=== PATIENT | female | born 1950 | race Caucasian/White ===

== ENCOUNTER 2018-01-28 11:58 | Inpatient (IN) | payer OTHER ==
[2018-01-28 12:08] VITALS: BMI 36.6
--- NOTE | 2018-01-28 12:14 | PDOC ---
History of Present Illness - General Chief Complaint: Pain Stated Complaint: BACK PAIN Time Seen by Provider: 01/28/18 12:14 - History of Present Illness Initial Comments: 01/28/18 12:24 Ms. Portillo is a 67 yo female w/ pmh of HTN and HLD who presents for evaluation of 1 hour of sudden onset left lower back pain / CVA tenderness radiating down to her left lower abdomen. Patient endorses nausea with this. Has not urinated since pain started. Rates pain as 10/10 and says it has moved downward somewhat since it started. The patient denies chest pain, shortness of breath, headache and dizziness. Denies fever, chills, vomit, diarrhea and constipation. Denies dysuria, frequency, urgency and hematuria. Allergies: Amoxicillin Past History - Past Medical History Allergies/Adverse Reactions: Allergies Allergy/AdvReac Type Severity Reaction Status Date / Time amoxicillin [Amoxicillin] Allergy Mild Itching Verified 01/28/18 12:08 Home Medications: Ambulatory Orders Amlodipine Besylate [Norvasc] 10 mg PO DAILY 07/17/11 Metoprolol Tartrate [Lopressor -] 100 mg PO DAILY 11/28/11 Aspirin 81 mg PO DAILY 10/01/12 Simvastatin [Zocor -] 10 mg PO HS 10/01/12 Ibuprofen [Motrin -] 400 mg PO QID PRN #20 tablet 04/13/15 Labetalol HCl 100 mg PO DAILY PRN 04/13/15 COPD: No HTN: Yes Hypercholesterolemia: Yes Thyroid Disease: Yes - Surgical History Appendectomy: Yes - Suicide/Smoking/Psychosocial Hx Smoking Status: No Smoking History: Never smoked Have you smoked in the past 12 months: No Number of Cigarettes Smoked Daily: 0 Hx Alcohol Use: No Drug/Substance Use Hx: No Substance Use Type: None Review of Systems - Review of Systems Comments:: 01/28/18 12:26 GENERAL/CONSTITUTIONAL: No fever or chills. No weakness. HEAD, EYES, EARS, NOSE AND THROAT: No change in vision. No ear pain or discharge. No sore throat. CARDIOVASCULAR: No chest pain or shortness of breath RESPIRATORY: No cough, wheezing, or hemoptysis. GASTROINTESTINAL:+Nausea w/ abdominal/back pain as described. No vomiting, diarrhea or constipation. GENITOURINARY: No dysuria, frequency, or change in urination. MUSCULOSKELETAL: No joint or muscle swelling or pain. No neck or back pain. SKIN: No rash NEUROLOGIC: No headache, vertigo, loss of consciousness, or change in strength/ sensation. ENDOCRINE: No increased thirst. No abnormal weight change HEMATOLOGIC/LYMPHATIC: No anemia, easy bleeding, or history of blood clots. ALLERGIC/IMMUNOLOGIC: No hives or skin allergy. *Physical Exam - Vital Signs Last Vital Signs Temp Pulse Resp BP Pulse Ox 98.1 F 85 18 172/84 97 01/28/18 12:05 01/28/18 12:05 01/28/18 12:05 01/28/18 12:05 01/28/18 12:05 - Physical Exam Comments: 01/28/18 12:27 GENERAL: Awake, alert, and fully oriented, in no acute distress HEAD: No signs of trauma, normocephalic, atraumatic EYES: PERRLA, EOMI, sclera anicteric, conjunctiva clear ENT: Auricles normal inspection, hearing grossly normal, nares patent, oropharynx clear without exudates. Moist mucosa NECK: Normal ROM, supple, no lymphadenopathy, JVD, or masses LUNGS: No distress, speaks full sentences, clear to auscultation bilaterally HEART: Regular rate and rhythm, normal S1 and S2, no murmurs, rubs or gallops, peripheral pulses normal and equal bilaterally. ABDOMEN: +Left CVA tenderness w/ LLQ abdominal pain. Soft, normoactive bowel sounds. No guarding, no rebound. No masses EXTREMITIES: Normal inspection, Normal range of motion, no edema. No clubbing or cyanosis. NEUROLOGICAL: Cranial nerves II through XII grossly intact. Normal speech, normal gait, no focal sensorimotor deficits SKIN: Warm, Dry, normal turgor, no rashes or lesions noted. ED Treatment Course - LABORATORY CBC & Chemistry Diagram: 01/28/18 12:40 01/28/18 12:40 Medical Decision Making - Medical Decision Making 01/28/18 13:41 Ms. Portillo is a 67 yo female w/ pmh as described who presents for evaluation of symptoms c/w nephrolithiasis. CT significant for 6mm proximal left ureteral calculus w/ mild hydro; also UTI as below. Urology paged for consult and inpatient team paged for admission. 01/28/18 13:48 Discussed patient w/ urologist who recommended 1gm rocephin and will stent patient tomorrow. Laboratory Results - last 24 hr 01/28/18 01/28/18 01/28/18 12:40 12:40 12:40 WBC 5.9 RBC 4.63 Hgb 13.2 Hct 38.9 D MCV 83.9 MCH 28.4 MCHC 33.8 RDW 15.1 Plt Count 277 MPV 7.7 Absolute Neuts (auto) 3.2 Neutrophils % 53.9 Lymphocytes % 34.7 Monocytes % 8.3 Eosinophils % 2.4 Basophils % 0.7 Nucleated RBC % 0 Sodium 142 Potassium 3.9 Chloride 106 Carbon Dioxide 26 Anion Gap 10 BUN 14 Creatinine 0.6 Creat Clearance w eGFR > 60 Random Glucose 137 H Calcium 9.4 Total Bilirubin 0.4 AST 14 L ALT 27 Alkaline Phosphatase 100 Total Protein 7.9 Albumin 4.2 Urine Color Ltyellow Urine Appearance Slcloudy Urine pH 6.0 Ur Specific [place] 1.015 Urine Protein Negative Urine Glucose (UA) Negative Urine Ketones Negative Urine Blood 3+ H Urine Nitrite Negative Urine Bilirubin Negative Urine Urobilinogen Negative Ur Leukocyte Esterase 2+ H Urine WBC (Auto) 22 Urine RBC (Auto) 610 Ur Epithelial Cells Rare Urine Mucus Rare *DC/Admit/Observation/Transfer Diagnosis at time of Disposition: Nephrolithiasis - Discharge Dispostion Decision to Admit order: Yes - Referrals Referrals: Constance Chapman [Primary Care Provider] - - Patient Instructions - Post Discharge Activity
[2018-01-28] MEDS ORDERED: SODIUM CHLORIDE 1,000 ML IV STA (12:20)
[2018-01-28] MEDS ORDERED: ONDANSETRON 4 MG/2 ML VIAL IVPUSH ONE (12:20)
[2018-01-28] MEDS ORDERED: morphine CARPU-JECT 4 MG/1 ML DISP.SYRIN IVPUSH ONE (12:21)
--- NOTE | 2018-01-28 12:27 | PDOC ---
Attending Attestation - Resident Resident Name: MichaelnicolekiranZachary - ED Attending Attestation I have performed the following: I have examined & evaluated the patient, The case was reviewed & discussed with the resident, I agree w/resident's findings & plan, Exceptions are as noted - HPI HPI: 01/28/18 12:25 67-year-old female with past medical history of hypertension, hyperlipidemia presents with sudden onset of left lower quadrant and left CVA tenderness pain starting approximately one hour ago. Denies any fevers or chills. Denies nausea or vomiting. Denies dysuria. First time episode and came to the ER for further evaluation. - Physicial Exam PE: 01/28/18 12:27 GENERAL: Awake, alert, and fully oriented, in no acute distress HEAD: No signs of trauma EYES: EOMI, sclera anicteric, conjunctiva clear ENT: Auricles normal inspection, hearing grossly normal, nares patent, Moist mucosa NECK: Normal ROM, supple ABDOMEN: Soft, nontender abdomen. + left sided CVA tenderness. No guarding, no rebound. No masses EXTREMITIES: Normal range of motion, no edema. No clubbing or cyanosis. No cords, erythema, or tenderness NEUROLOGICAL: Cranial nerves II through XII grossly intact. Normal speech, normal gait SKIN: Warm, Dry, normal turgor, no rashes or lesions noted. - Medical Decision Making 01/28/18 12:31 Vital Signs Temp Pulse Resp BP Pulse Ox 98.1 F 85 18 172/84 97 01/28/18 12:05 01/28/18 12:05 01/28/18 12:05 01/28/18 12:05 01/28/18 12:05 Differential includes cystitis, diverticulitis, colitis, renal colic, musculoskeletal. Labs including UA/UC, CT spiral abdomen and pelvis and reassess. 01/28/18 13:39 CBC, BMP 01/28/18 12:40 01/28/18 12:40 CMP Sodium 142 mmol/L (136-145) 01/28/18 12:40 Potassium 3.9 mmol/L (3.5-5.1) 01/28/18 12:40 Chloride 106 mmol/L (98-107) 01/28/18 12:40 Carbon Dioxide 26 mmol/L (21-32) 01/28/18 12:40 Anion Gap 10 MMOL/L (8-16) 01/28/18 12:40 BUN 14 mg/dL (7-18) 01/28/18 12:40 Creatinine 0.6 mg/dL (0.55-1.3) 01/28/18 12:40 Creat Clearance w eGFR > 60 (>60) 01/28/18 12:40 Random Glucose 137 mg/dL (74-106) H 01/28/18 12:40 Calcium 9.4 mg/dL (8.5-10.1) 01/28/18 12:40 Total Bilirubin 0.4 mg/dL (0.2-1.0) 01/28/18 12:40 AST 14 U/L (15-37) L 01/28/18 12:40 ALT 27 U/L (13-61) 01/28/18 12:40 Alkaline Phosphatase 100 U/L (45-117) 01/28/18 12:40 Total Protein 7.9 g/dl (6.4-8.2) 01/28/18 12:40 Albumin 4.2 g/dl (3.4-5.0) 01/28/18 12:40 Urine Test Results Urine Color Ltyellow 01/28/18 12:40 Urine Appearance Slcloudy 01/28/18 12:40 Urine pH 6.0 (5.0-8.0) 01/28/18 12:40 Ur Specific [place] 1.015 (1.001-1.035) 01/28/18 12:40 Urine Protein Negative (NEGATIVE) 01/28/18 12:40 Urine Glucose (UA) Negative (NEGATIVE) 01/28/18 12:40 Urine Ketones Negative (NEGATIVE) 01/28/18 12:40 Urine Blood 3+ (NEGATIVE) H 01/28/18 12:40 Urine Nitrite Negative (NEGATIVE) 01/28/18 12:40 Urine Bilirubin Negative (<2.0 mg/dL) 01/28/18 12:40 Ur Leukocyte Esterase 2+ (NEGATIVE) H 01/28/18 12:40 Ur Epithelial Cells Rare /HPF (FEW) 01/28/18 12:40 Urine Mucus Rare 01/28/18 12:40 CAT scan demonstrates cholelithiasis and kidney stone. Repeat to be some hydronephrosis and a 6 mm stone. Given that there is 2+ leukocyte esterase and 20-30 mL, we'll treat with IV antibiotic, ceftriaxone. Case is discussed with urologist Dr. Gilbert by Dr. Henry who will be personal consultant on case. Admit. Heart Score/ECG Review #1 ECG reviewed & interpreted by me at: 14:45 01/28/18 14:53 NSR 93, no std/st, normal axis, normal intervals, QTC 472 msec
[2018-01-28] MEDS ORDERED: morphine SULFATE 4 MG/ML VIAL ONE (12:30)
[2018-01-28] MEDS ORDERED: ONDANSETRON 4 MG/2 ML VIAL ONE (12:30)
[2018-01-28 12:49] LABS: BASO % 0.7 % (0-2.0); EOS % 2.4 % (0-4.5); HEMATOCRIT 38.9 % (32.4-45.2); HEMOGLOBIN 13.2 GM/dL (10.7-15.3); LYMPH % 34.7 % (8-40); MCH 28.4 pg (25.7-33.7); MCHC 33.8 g/dl (32.0-36.0); MEAN CELL VOLUME 83.9 fl (80-96); MEAN PLT VOLUME 7.7 fl (7.5-11.1); MONO % 8.3 % (3.8-10.2); NEUT % 53.9 % (42.8-82.8); PLATELET COUNT 277 K/MM3 (134-434); RBC 4.63 M/mm3 (3.60-5.2); RDW 15.1 % (11.6-15.6); WHITE BLOOD COUNT 5.9 K/mm3 (4.0-10.0)
[2018-01-28 12:51] LABS: URINE APPEARANCE SLCLOUDY; URINE BILIRUBIN NEGATIVE (<2.0 mg/dL); URINE COLOR LTYELLOW; URINE GLUCOSE (UA) NEGATIVE (NEGATIVE); URINE KETONE NEGATIVE (NEGATIVE); URINE NITRITE NEGATIVE (NEGATIVE); URINE PROTEIN NEGATIVE (NEGATIVE); URINE UROBILINOGEN NEGATIVE mg/dL (0.2-1.0)
[2018-01-28 12:56] LABS: URINE LEUK ESTERASE 2+ (NEGATIVE)
[2018-01-28 13:00] LABS: EPI CELLS RARE /HPF (FEW); URINE MUCUS RARE
[2018-01-28 13:17] LABS: ALBUMIN 4.2 g/dl (3.4-5.0); ANION GAP 10 MMOL/L (8-16); BILIRUBIN,TOTAL 0.4 mg/dL (0.2-1.0); BLOOD UREA NITROGEN 14 mg/dL (7-18); CALCIUM 9.4 mg/dL (8.5-10.1); CHLORIDE 106 mmol/L (98-107); CO2 26 mmol/L (21-32); CREATININE 0.6 mg/dL (0.55-1.3); GLUCOSE,RANDOM 137 mg/dL (74-106); POTASSIUM 3.9 mmol/L (3.5-5.1); SGOT/AST 14 U/L (15-37); SGPT/ALT 27 U/L (13-61); SODIUM 142 mmol/L (136-145); TOT PROT 7.9 g/dl (6.4-8.2)
[2018-01-28 13:18] LABS: ALK PHOS 100 U/L (45-117)
[2018-01-28] MEDS ORDERED: CEFTRIAXONE 1,000 MG in DEXTROSE 5%-WATER - 50 ML IVPB ONE (13:44)
[2018-01-28] MEDS ORDERED: CEFTRIAXONE 1 GM/50 ML BAG ONE (13:49)
--- NOTE | 2018-01-28 14:12 | PN ---
Teaching Attending Note Name of Resident: Justin Davenport ATTENDING PHYSICIAN STATEMENT I saw and evaluated the patient. I reviewed the resident's note and discussed the case with the resident. I agree with the resident's findings and plan as documented. SUBJECTIVE: Patient is a 67 y/o female with PMHx of HTN, HLD, hypothyroidism, presneted with sudden onset left back and flank plain radiating to LLQ since 11 am this mornig, 02/21 severity, no alleviating or exacerbating factors, denies having any fever or chills , Denies having any hematuria or hesistancy or urgency. Denies having any vomiting, diarrhea, or constipation. OBJECTIVE: Vital Signs Temperature 98.1 F 01/28/18 12:05 Pulse Rate 85 01/28/18 12:05 Respiratory Rate 18 01/28/18 12:05 Blood Pressure 172/84 01/28/18 12:05 O2 Sat by Pulse Oximetry (%) 97 01/28/18 12:05 CBCD WBC 5.9 K/mm3 (4.0-10.0) 01/28/18 12:40 RBC 4.63 M/mm3 (3.60-5.2) 01/28/18 12:40 Hgb 13.2 GM/dL (10.7-15.3) 01/28/18 12:40 Hct 38.9 % (32.4-45.2) D 01/28/18 12:40 MCV 83.9 fl (80-96) 01/28/18 12:40 MCHC 33.8 g/dl (32.0-36.0) 01/28/18 12:40 RDW 15.1 % (11.6-15.6) 01/28/18 12:40 Plt Count 277 K/MM3 (134-434) 01/28/18 12:40 MPV 7.7 fl (7.5-11.1) 01/28/18 12:40 CMP Sodium 142 mmol/L (136-145) 01/28/18 12:40 Potassium 3.9 mmol/L (3.5-5.1) 01/28/18 12:40 Chloride 106 mmol/L (98-107) 01/28/18 12:40 Carbon Dioxide 26 mmol/L (21-32) 01/28/18 12:40 Anion Gap 10 MMOL/L (8-16) 01/28/18 12:40 BUN 14 mg/dL (7-18) 01/28/18 12:40 Creatinine 0.6 mg/dL (0.55-1.3) 01/28/18 12:40 Creat Clearance w eGFR > 60 (>60) 01/28/18 12:40 Random Glucose 137 mg/dL (74-106) H 01/28/18 12:40 Calcium 9.4 mg/dL (8.5-10.1) 01/28/18 12:40 Total Bilirubin 0.4 mg/dL (0.2-1.0) 01/28/18 12:40 AST 14 U/L (15-37) L 01/28/18 12:40 ALT 27 U/L (13-61) 01/28/18 12:40 Alkaline Phosphatase 100 U/L (45-117) 01/28/18 12:40 Total Protein 7.9 g/dl (6.4-8.2) 01/28/18 12:40 Albumin 4.2 g/dl (3.4-5.0) 01/28/18 12:40 Current Medications Generic Name Dose Route Start Last Admin Trade Name Freq PRN Reason Stop Dose Admin Ceftriaxone Sodium 1,000 mg/ 50 mls @ 100 mls/hr 01/28/18 13:44 01/28/18 13: 58 Dextrose IVPB 01/28/18 14:13 100 mls/hr ONCE ONE Administration Home Medications Medication Instructions Recorded Amlodipine Besylate [Norvasc] 10 mg PO DAILY 07/17/11 Metoprolol Tartrate [Lopressor -] 100 mg PO DAILY 11/28/11 Aspirin 81 mg PO DAILY 10/01/12 Simvastatin [Zocor -] 10 mg PO HS 10/01/12 Ibuprofen [Motrin -] 400 mg PO QID PRN #20 tablet 04/13/15 Labetalol HCl 100 mg PO DAILY PRN 04/13/15 PE: generally with severe pain , unable to lie still positive for left CVA tenderness CT abdomen and pelvis: reported : obstruction L ureteral calculus and hydronephrosis. ASSESSMENT AND PLAN: Patient is a 67yo Female with PMHx HTN, HLD, hypothyroidism presented with left flank pain 02/21 and was found to have left partial obstruction ureteral calculus with hydronephrosis. # Left Ureteral stone with partial obstruction with hydronephrosis: On Iv Ceftriaxone, urology consulted (Dr. Gilbert), NS 75, morphine, IV tylenol prn for pain and Morphine 2mg iv q4 hr. #HTN: continue home meds; Toprol, Losartan, Norvasc. #HLD: continue home Zocor #hypothyroidism: continue home synthroid 100 po mcg #DVT PPx: SCDs
[2018-01-28] MEDS: SODIUM CHLORIDE 1,000 ML IV SCH (14:33)
[2018-01-28] MEDS ORDERED: amLODIPine BESYLATE 5 MG TABLET (FP) ONE (14:35)
[2018-01-28] MEDS: amLODIPine BESYLATE 5 MG TABLET (FP) PO SCH (14:39)
--- NOTE | 2018-01-28 14:40 | HP ---
CHIEF COMPLAINT: Back/flank pain PCP: HISTORY OF PRESENT ILLNESS: 67 y/o F w/ PMHx HTN, HLD, hypothyroidism, p/w sudden onset left back and flank plain radiating to LLQ since 11 am, 02/21 severity, no alleviating or exacerbating factors, a/w nausea no vomiting, diarrhea, constipation. Denied fever/chills on arrival in ED but in hospitalist encounter endorsed recent onset of fever, chills, and diaphoresis. Denies dysuria, hematuria, CP, SOB. Imaging demonstrates obstruction L ureteral calculus and hydronephrosis. ER course was notable for: (1) afebrile, no WBC elevation (2) CT a/p: L ureteral calculus w/ hydronephrosis, cholelithiasis, fibroid uterus (3) given saline bolus, morphine 4mg, ceftriaxone; UCx pending Recent Travel: PAST MEDICAL HISTORY: As per HPI PAST SURGICAL HISTORY: None Social History: Smoking: Alcohol: Drugs: Family History: Allergies amoxicillin [Amoxicillin] Allergy (Mild, Verified 01/28/18 12:08) Itching HOME MEDICATIONS: Home Medications Medication Instructions Recorded Amlodipine Besylate [Norvasc] 10 mg PO DAILY 07/17/11 Aspirin 81 mg PO DAILY 10/01/12 Simvastatin [Zocor -] 10 mg PO HS 10/01/12 Ergocalciferol (Vitamin D2) 50,000 unit PO 01/28/18 [Vitamin D2] Levothyroxine [Synthroid -] 100 mcg PO DAILY 01/28/18 Losartan Potassium 50 mg PO DAILY 01/28/18 Metoprolol Succinate [Toprol Xl] 100 mg PO DAILY 01/28/18 REVIEW OF SYSTEMS As per HPI PHYSICAL EXAMINATION Vital Signs - 24 hr 01/28/18 12:05 Temperature 98.1 F Pulse Rate 85 Respiratory 18 Rate Blood Pressure 172/84 O2 Sat by Pulse 97 Oximetry (%) GENERAL: A&O x 3, NAD HEAD: NC/AT EYES: PERRLA, EOMI EARS, NOSE, THROAT: Ears normal, nares patent, oropharynx clear without exudates. Moist mucous membranes. NECK: Normal range of motion, supple without lymphadenopathy, JVD, or masses. LUNGS: Breath sounds equal, clear to auscultation bilaterally. No wheezes, and no crackles. No accessory muscle use. HEART: Regular rate and rhythm, normal S1 and S2 without murmur, rub or gallop. ABDOMEN: Soft, nontender, not distended, normoactive bowel sounds, no guarding, no rebound, no masses. No hepatomegaly or splenomegaly. MUSCULOSKELETAL: Normal range of motion at all joints. +L CVA tenderness. UPPER EXTREMITIES: 2+ pulses, warm, well-perfused. No cyanosis. No clubbing. No peripheral edema. LOWER EXTREMITIES: 2+ pulses, warm, well-perfused. No calf tenderness. No peripheral edema. NEUROLOGICAL: Cranial nerves II-XII intact. Normal speech. Normal gait. PSYCHIATRIC: Cooperative. Good eye contact. Appropriate mood and affect. SKIN: Warm, dry, normal turgor, no rashes or lesions noted, normal capillary refill. Laboratory Results - last 24 hr 01/28/18 01/28/18 01/28/18 12:40 12:40 12:40 WBC 5.9 RBC 4.63 Hgb 13.2 Hct 38.9 D MCV 83.9 MCH 28.4 MCHC 33.8 RDW 15.1 Plt Count 277 MPV 7.7 Absolute Neuts (auto) 3.2 Neutrophils % 53.9 Lymphocytes % 34.7 Monocytes % 8.3 Eosinophils % 2.4 Basophils % 0.7 Nucleated RBC % 0 Sodium 142 Potassium 3.9 Chloride 106 Carbon Dioxide 26 Anion Gap 10 BUN 14 Creatinine 0.6 Creat Clearance w eGFR > 60 Random Glucose 137 H Calcium 9.4 Total Bilirubin 0.4 AST 14 L ALT 27 Alkaline Phosphatase 100 Total Protein 7.9 Albumin 4.2 Urine Color Ltyellow Urine Appearance Slcloudy Urine pH 6.0 Ur Specific [place] 1.015 Urine Protein Negative Urine Glucose (UA) Negative Urine Ketones Negative Urine Blood 3+ H Urine Nitrite Negative Urine Bilirubin Negative Urine Urobilinogen Negative Ur Leukocyte Esterase 2+ H Urine WBC (Auto) 22 Urine RBC (Auto) 610 Ur Epithelial Cells Rare Urine Mucus Rare ASSESSMENT/PLAN: 67 y/o F w/ PMHx HTN, HLD, hypothyroidism p/w 10/10 L flank pain, admitted for obstruction ureteral stone #ureteral stone -CT a/p L ureteral stone and hydronephrosis -afebrile, no leukocytosis -UA w/ blood and scant WBC, culture sent -on Ceftriaxone -urology consulted (Dr. Gilbert) -NPO -NS 75 -IV tylenol PRN for pain #HTN -home meds: Toprol, Losartan, Norvasc #HLD -home Zocor #hypothyroidism -home synthroid 100 mcg #FEN -NS 75 -monitor -NPO #DVT PPx -SCDs #dispo -med/surg Visit type - Emergency Visit Emergency Visit: Yes Care time: The patient presented to the Emergency Department on the above date and was hospitalized for further evaluation of their emergent condition. - New Patient This patient is new to me today: Yes Date on this admission: 01/28/18 - Critical Care Critical Care patient: No Hospitalist Screening - Colonoscopy Questionnaire Colonoscopy Questionnaire: Colonoscopy Questionnaire - Patient: 50 - 75 years old and never had a screening colonoscopy: Unknown History of colon or rectal polyps, or CA: Unknown History of IBD, Crohn's disease or UC: Unknown History of abdominal radiation therapy as a child: Unknown - Relative: 1 with colon or rectal CA, or polyps at age 60 or younger: Unknown Colon or rectal CA diagnosed at age 45 or younger: Unknown Multiple relatives with colon or rectal CA: Unknown - Outcome: Screening Result: Negative Screen
[2018-01-28] MEDS ORDERED: ACETAMINOPHEN INJECTION 100 ML IVPB ONE (14:41)
[2018-01-28] MEDS: ACETAMINOPHEN 1000 MG/100 ML VIAL (NON FORMULARY) IVPB PRN (14:43)
[2018-01-28 15:14] LABS: INR 0.96 (0.83-1.09); PROTHROMBIN TIME (PATIENT) 10.9 SEC (9.7-13.0)
[2018-01-28] MEDS ORDERED: MORPHINE SULFATE 2 MG/ML VIAL IVPUSH PRN (15:14)
[2018-01-28 15:16] LABS: ACTIVATED PTT 25.3 SECONDS (25.2-36.5)
[2018-01-28] MEDS: LOSARTAN POTASSIUM 50 MG TABLET (FP) PO SCH ×2 (15:27→15:30)
[2018-01-28] MEDS ORDERED: MORPHINE SULFATE 2 MG/ML VIAL IVPUSH ONE (18:00)
[2018-01-28] MEDS ORDERED: LOSARTAN POTASSIUM 50 MG TABLET (FP) PO ONE (21:00)
--- NOTE | 2018-01-28 21:07 | EKG ---
Test Reason : Blood Pressure : / mmHG Vent. Rate : 093 BPM Atrial Rate : 093 BPM P-R Int : 164 ms QRS Dur : 078 ms QT Int : 380 ms P-R-T Axes : 071 048 063 degrees QTc Int : 472 ms NORMAL SINUS RHYTHM NORMAL ECG WHEN COMPARED WITH ECG OF 13-APR-2015 13:13, NO SIGNIFICANT CHANGE WAS FOUND Confirmed by KRYSTYNA ALCARAZ MD ([id number]) on 01/28/2018 9:07:30 PM Referred By: Confirmed By:KRYSTYNA ALCARAZ MD
[2018-01-28] MEDS: ATORVASTATIN CA 10 MG TABLET (FP) PO SCH (21:47)
[2018-01-28] MEDS: MORPHINE SULFATE 2 MG/ML VIAL IVPUSH PRN (21:48)
[2018-01-29] MEDS: ACETAMINOPHEN 1000 MG/100 ML VIAL (NON FORMULARY) IVPB PRN (00:59)
[2018-01-29] MEDS: SODIUM CHLORIDE 1,000 ML IV SCH (01:00)
[2018-01-29] MEDS: MORPHINE SULFATE 2 MG/ML VIAL IVPUSH PRN ×2 (05:52→12:59)
[2018-01-29] MEDS ORDERED: PROMETHAZINE HCL 25 MG TABLET PO ONE (06:42)
[2018-01-29 07:36] LABS: BASO % 0.8 % (0-2.0); EOS % 0.1 % (0-4.5); HEMOGLOBIN 12.4 GM/dL (10.7-15.3); LYMPH % 8.3 % (8-40); MCHC 33.5 g/dl (32.0-36.0); MEAN CELL VOLUME 83.6 fl (80-96); MEAN PLT VOLUME 7.2 fl (7.5-11.1); MONO % 6.4 % (3.8-10.2); NEUT % 84.4 % (42.8-82.8); PLATELET COUNT 272 K/MM3 (134-434); RBC 4.42 M/mm3 (3.60-5.2); RDW 14.9 % (11.6-15.6); WHITE BLOOD COUNT 11.6 K/mm3 (4.0-10.0)
[2018-01-29 08:31] LABS: ANION GAP 11 MMOL/L (8-16); BLOOD UREA NITROGEN 11 mg/dL (7-18); CALCIUM 9.2 mg/dL (8.5-10.1); CHLORIDE 103 mmol/L (98-107); CO2 26 mmol/L (21-32); CREATININE 0.8 mg/dL (0.55-1.3); GLUCOSE,RANDOM 121 mg/dL (74-106); PHOSPHOROUS 3.7 mg/dL (2.5-4.9); POTASSIUM 4.2 mmol/L (3.5-5.1); SODIUM 140 mmol/L (136-145)
[2018-01-29] MEDS ORDERED: DEXTROSE 5%-WATER 100 ML IVPB ONE (09:36)
[2018-01-29] MEDS: LEVOTHYROXINE NA 100 MCG TABLET (FP) PO SCH (09:50)
[2018-01-29] MEDS: ASPIRIN 81 MG CHEWABLE TABLETS PO SCH ×2 (09:50→11:46)
[2018-01-29] MEDS: amLODIPine BESYLATE 5 MG TABLET (FP) PO SCH (09:50)
[2018-01-29] MEDS: CEFTRIAXONE 2 GM in DEXTROSE 5%-WATER 100 ML IVPB SCH (09:51)
[2018-01-29] MEDS: LOSARTAN POTASSIUM 50 MG TABLET (FP) PO SCH (09:51)
[2018-01-29] MEDS ORDERED: oxyCODONE HCL 5 MG TABLET PO PRN (11:59)
--- NOTE | 2018-01-29 13:04 | PN ---
Physical Exam: SUBJECTIVE: Patient seen and examined at bedside. Pain significantly improved with morphine vs. at admission. No complaints otherwise. OBJECTIVE: Vital Signs Period Temp Pulse Resp BP Sys/Antunez Pulse Ox Last 24 Hr 97.8 F-98.7 F 82-100 18-20 133-154/73-91 96-98 GENERAL: A&O x 3, NAD HEAD: NC/AT EYES: PERRLA, EOMI EARS, NOSE, THROAT: Ears normal, nares patent, oropharynx clear without exudates. Moist mucous membranes. NECK: Normal range of motion, supple without lymphadenopathy, JVD, or masses. LUNGS: Breath sounds equal, clear to auscultation bilaterally. No wheezes, and no crackles. No accessory muscle use. HEART: Regular rate and rhythm, normal S1 and S2 without murmur, rub or gallop. ABDOMEN: Soft, nontender, not distended, normoactive bowel sounds, no guarding, no rebound, no masses. No hepatomegaly or splenomegaly. MUSCULOSKELETAL: Normal range of motion at all joints. +L CVA tenderness. UPPER EXTREMITIES: 2+ pulses, warm, well-perfused. No cyanosis. No clubbing. No peripheral edema. LOWER EXTREMITIES: 2+ pulses, warm, well-perfused. No calf tenderness. No peripheral edema. NEUROLOGICAL: Cranial nerves II-XII intact. Normal speech. Normal gait. PSYCHIATRIC: Cooperative. Good eye contact. Appropriate mood and affect. SKIN: Warm, dry, normal turgor, no rashes or lesions noted, normal capillary refill. Laboratory Results - last 24 hr 01/28/18 01/28/18 01/28/18 12:40 14:41 14:41 WBC RBC Hgb Hct MCV MCH MCHC RDW Plt Count MPV Absolute Neuts (auto) Neutrophils % Lymphocytes % Monocytes % Eosinophils % Basophils % Nucleated RBC % PT with INR 10.90 INR 0.96 PTT (Actin FS) 25.3 Sodium 142 Potassium 3.9 Chloride 106 Carbon Dioxide 26 Anion Gap 10 BUN 14 Creatinine 0.6 Creat Clearance w eGFR > 60 Random Glucose 137 H Calcium 9.4 Phosphorus Magnesium Total Bilirubin 0.4 AST 14 L ALT 27 Alkaline Phosphatase 100 Total Protein 7.9 Albumin 4.2 Blood Type A POSITIVE Antibody Screen Negative 01/28/18 01/29/18 01/29/18 16:10 07:30 07:30 WBC 11.6 H RBC 4.42 Hgb 12.4 Hct 37.0 MCV 83.6 MCH 28.0 MCHC 33.5 RDW 14.9 Plt Count 272 MPV 7.2 L Absolute Neuts (auto) 9.8 H Neutrophils % 84.4 H D Lymphocytes % 8.3 D Monocytes % 6.4 Eosinophils % 0.1 D Basophils % 0.8 Nucleated RBC % 0 PT with INR INR PTT (Actin FS) Sodium 140 Potassium 4.2 Chloride 103 Carbon Dioxide 26 Anion Gap 11 BUN 11 Creatinine 0.8 Creat Clearance w eGFR > 60 Random Glucose 121 H Calcium 9.2 Phosphorus 3.7 Magnesium 2.0 Total Bilirubin AST ALT Alkaline Phosphatase Total Protein Albumin Blood Type A POSITIVE Antibody Screen Active Medications Generic Name Dose Route Start Last Admin Trade Name Freq PRN Reason Stop Dose Admin Acetaminophen 1,000 mg 01/28/18 14:13 01/29/18 00:59 Ofirmev Injection - IVPB 1,000 mg Q8H PRN Administration pain and fever Amlodipine Besylate 10 mg 01/28/18 14:30 01/29/18 09:50 Norvasc - PO 10 mg DAILY CHRISTOPHER Administration Aspirin 81 mg 01/29/18 10:00 01/29/18 11:46 Asa - PO Not Given DAILY CHRISTOPHER Atorvastatin Calcium 10 mg 01/28/18 22:00 01/28/18 21:47 Lipitor - PO 10 mg HS CHRISTOPHER Administration Fentanyl 50 mcg 01/29/18 11:59 Sublimaze Injection - IVPUSH 01/29/18 16:00 [id number] PRN PAIN-PACU ORDER X 4 DOSES ONLY Sodium Chloride 1,000 mls @ 75 mls/hr 01/28/18 14:30 01/29/18 01:00 Normal Saline - IV 75 mls/hr ASDIR CHRISTOPHER Administration Ceftriaxone Sodium 2 gm/ 100 mls @ 200 mls/hr 01/29/18 10:00 01/29/18 09:51 Dextrose IVPB 200 mls/hr DAILY CHRISTOPHER Administration Protocol Levothyroxine Sodium 100 mcg 01/29/18 10:00 01/29/18 09:50 Synthroid - PO 100 mcg DAILY CHRISTOPHER Administration Losartan Potassium 50 mg 01/28/18 14:30 01/29/18 09:51 Cozaar - PO Not Given DAILY CHRISTOPHER Metoprolol Succinate 100 mg 01/29/18 10:00 01/29/18 09:51 Toprol Xl - PO 100 mg DAILY CHRISTOPHER Administration Morphine Sulfate 4 mg 01/28/18 17:49 01/29/18 12:59 Morphine Sulfate IVPUSH 4 mg Q3H PRN Administration PAIN LEVEL 6-10 Oxycodone HCl 5 mg 01/29/18 11:59 Roxicodone - PO 01/30/18 11:58 Q4H PRN PAIN LEVEL 1-5 ASSESSMENT/PLAN: 67 y/o F w/ PMHx HTN, HLD, hypothyroidism p/w 10/10 L flank pain, admitted for obstruction ureteral stone #ureteral stone -CT a/p L ureteral stone and hydronephrosis -afebrile, no leukocytosis -UA w/ blood and scant WBC, culture sent -UCx contaminated -on Ceftriaxone -urology consulted (Dr. Gilbert) -today: cystoscopy, L JJ stent insertion -outpt f/u ESWL L vs LULL JJ chng after uti resolved -NS 75 -morphine 4 q3 for pain #HTN -home meds: Toprol, Losartan, Norvasc #HLD -home Zocor #hypothyroidism -home synthroid 100 mcg #FEN -NS 75 -monitor -low sodium diet #DVT PPx -heparin subq #dispo -med/surg Visit type - Emergency Visit Emergency Visit: No - New Patient This patient is new to me today: No - Critical Care Critical Care patient: No
[2018-01-29] MEDS ORDERED: MIDAZOLAM HCL 2 MG/2 ML SINGLE DOSE VIAL ONE (13:47)
[2018-01-29] MEDS ORDERED: LIDOCAINE HCL/PF 2% SDV 5ML VIAL ONE (13:47)
[2018-01-29] MEDS ORDERED: PROPOFOL 20 ML ONE ×2 (13:47)
--- NOTE | 2018-01-29 13:55 | CON.GU ---
Consult Consult Specialty:: Reason for Consultation:: L ureteral calculus - History of Present Illness Chief Complaint: L flank pain History of Present Illness: 67 y/o F w/ PMHx HTN, HLD, hypothyroidism, p/w sudden onset left back and flank plain radiating to LLQ since 11 am, 02/21 severity, no alleviating or exacerbating factors, a/w nausea no vomiting, diarrhea, constipation. Denied fever/chills on arrival in ED but in hospitalist encounter endorsed recent onset of fever, chills, and diaphoresis. Denies dysuria, hematuria, CP, SOB. Imaging demonstrates obstruction L ureteral calculus and hydronephrosis. cons req. ER course was notable for: (1) afebrile, no WBC elevation (2) CT a/p: L ureteral calculus w/ hydronephrosis, cholelithiasis, fibroid uterus (3) given saline bolus, morphine 4mg, ceftriaxone; UCx pending - History Source History Provided By: Patient, Medical Record Limitations to Obtaining History: No Limitations - Alcohol/Substance Use Hx Alcohol Use: No - Smoking History Smoking history: Never smoked Have you smoked in the past 12 months: No Aproximately how many cigarettes per day: 0 Home Medications - Allergies Allergies/Adverse Reactions: Allergies Allergy/AdvReac Type Severity Reaction Status Date / Time amoxicillin [Amoxicillin] Allergy Mild Itching Verified 01/28/18 12:08 - Home Medications Home Medications: Ambulatory Orders Amlodipine Besylate [Norvasc] 10 mg PO DAILY 07/17/11 Aspirin 81 mg PO DAILY 10/01/12 Simvastatin [Zocor -] 10 mg PO HS 10/01/12 Ergocalciferol (Vitamin D2) [Vitamin D2] 50,000 unit PO WEEKLY 01/28/18 Levothyroxine [Synthroid -] 100 mcg PO DAILY 01/28/18 Losartan Potassium 50 mg PO DAILY 01/28/18 Metoprolol Succinate [Toprol Xl] 100 mg PO DAILY 01/28/18 Review of Systems - Review of Systems Genitourinary: reports: Flank Pain Physical Exam- Vital Signs: Vital Signs Temperature 98.4 F 01/29/18 09:00 Pulse Rate 95 H 01/29/18 09:00 Respiratory Rate 18 01/29/18 09:00 Blood Pressure 153/73 01/29/18 09:00 O2 Sat by Pulse Oximetry (%) 97 01/29/18 09:00 Gastrointestinal: Yes: WNL, Normal Bowel Sounds, Soft Renal/: Yes: CVA Tenderness - Left External Genitalia: Yes: WNL Musculoskeletal: Yes: WNL Extremities: Yes: WNL Labs: CBC, BMP 01/29/18 07:30 01/29/18 07:30 Imaging - Results Cat Scan: Report Reviewed Problem List - Problems (1) Ureteral calculus Assessment/Plan: cysto L JJ stent insertion, f/u in my office to book ESWL L vs LULL JJ chng after uti resolved Code(s): N20.1 - CALCULUS OF URETER (2) Hydronephrosis Code(s): N13.30 - UNSPECIFIED HYDRONEPHROSIS (3) UTI (urinary tract infection) Assessment/Plan: cont abxs, await ur cx Code(s): N39.0 - URINARY TRACT INFECTION, SITE NOT SPECIFIED (4) Nephrolithiasis Code(s): N20.0 - CALCULUS OF KIDNEY
--- NOTE | 2018-01-29 13:59 | OP ---
Operative Note - Note: Operative Date: 01/29/18 Pre-Operative Diagnosis: L ureteral calculus, L hydronephrosis, UTI Operation: cysto L JJ stent insertion Surgeon: Jagdeep Gilbert Anesthesiologist/DRUG ENFORCEMENT ADMINISTRATION AGENT: Snow Haque Anesthesia: General Estimated Blood Loss (mls): 0 Drains & Tubes with Location: 6 fr 24 cm L JJ stent Operative Report Dictated: Yes
[2018-01-29] MEDS ORDERED: GENTAMICIN SO4 80 MG/2 ML VIAL ONE (14:21)
[2018-01-29] MEDS: HEPARIN NA (PORCINE) 5,000 UNITS/ML 1ML VIAL SQ SCH ×2 (14:50→21:18)
--- NOTE | 2018-01-29 18:12 | PN ---
Teaching Attending Note Name of Resident: Justin Davenport ATTENDING PHYSICIAN STATEMENT I saw and evaluated the patient. I reviewed the resident's note and discussed the case with the resident. I agree with the resident's findings and plan as documented. SUBJECTIVE: Patient is c/o having back pain but slightly better OBJECTIVE: Vital Signs Temperature 98.6 F 01/29/18 15:40 Pulse Rate 76 01/29/18 15:40 Respiratory Rate 16 01/29/18 15:40 Blood Pressure 112/60 01/29/18 15:40 O2 Sat by Pulse Oximetry (%) 98 01/29/18 15:30 GENERAL: AA0x 3, NAD, HEAD: NC/AT, EYES: PERRLA, EOMI EARS, NOSE, THROAT: Ears normal, , oropharynx clear without exudates. Moist mucous membranes. NECK: Normal range of motion, supple, no JVD, or masses. LUNGS: Breath sounds equal, clear to auscultation bilaterally. No wheezes, and no crackles. HEART: Regular rate and rhythm, normal S1 and S2 without murmur, rub or gallop. ABDOMEN: Soft, nontender, positive for ventral hernia, normoactive bowel sounds , no guarding, no rebound, no masses. MUSCULOSKELETAL: Normal range of motion at all joints. left CVA tenderness. EXTREMITIES: 2+ pulses, warm, well-perfused. No cyanosis. No clubbing. NEUROLOGICAL: Cranial nerves II-XII intact. Normal speech. Normal gait. PSYCHIATRIC: Cooperative. Good eye contact. Appropriate mood and affect. SKIN: Warm, dry, normal turgor, no rashes or lesions noted, normal capillary refill. CBCD WBC 11.6 K/mm3 (4.0-10.0) H 01/29/18 07:30 RBC 4.42 M/mm3 (3.60-5.2) 01/29/18 07:30 Hgb 12.4 GM/dL (10.7-15.3) 01/29/18 07:30 Hct 37.0 % (32.4-45.2) 01/29/18 07:30 MCV 83.6 fl (80-96) 01/29/18 07:30 MCHC 33.5 g/dl (32.0-36.0) 01/29/18 07:30 RDW 14.9 % (11.6-15.6) 01/29/18 07:30 Plt Count 272 K/MM3 (134-434) 01/29/18 07:30 MPV 7.2 fl (7.5-11.1) L 01/29/18 07:30 CMP Sodium 140 mmol/L (136-145) 01/29/18 07:30 Potassium 4.2 mmol/L (3.5-5.1) 01/29/18 07:30 Chloride 103 mmol/L (98-107) 01/29/18 07:30 Carbon Dioxide 26 mmol/L (21-32) 01/29/18 07:30 Anion Gap 11 MMOL/L (8-16) 01/29/18 07:30 BUN 11 mg/dL (7-18) 01/29/18 07:30 Creatinine 0.8 mg/dL (0.55-1.3) 01/29/18 07:30 Creat Clearance w eGFR > 60 (>60) 01/29/18 07:30 Random Glucose 121 mg/dL (74-106) H 01/29/18 07:30 Calcium 9.2 mg/dL (8.5-10.1) 01/29/18 07:30 Total Bilirubin 0.4 mg/dL (0.2-1.0) 01/28/18 12:40 AST 14 U/L (15-37) L 01/28/18 12:40 ALT 27 U/L (13-61) 01/28/18 12:40 Alkaline Phosphatase 100 U/L (45-117) 01/28/18 12:40 Total Protein 7.9 g/dl (6.4-8.2) 01/28/18 12:40 Albumin 4.2 g/dl (3.4-5.0) 01/28/18 12:40 Current Medications Generic Name Dose Route Start Last Admin Trade Name Freq PRN Reason Stop Dose Admin Amlodipine Besylate 10 mg 01/28/18 14:30 01/29/18 09:50 Norvasc - PO 10 mg DAILY CHRISTOPHER Administration Aspirin 81 mg 01/29/18 10:00 01/29/18 11:46 Asa - PO Not Given DAILY CHRISTOPHER Atorvastatin Calcium 10 mg 01/28/18 22:00 01/28/18 21:47 Lipitor - PO 10 mg HS CHRISTOPHER Administration Heparin Sodium (Porcine) 5,000 unit 01/29/18 14:30 01/29/18 14:50 Heparin - SQ Not Given TID CHRISTOPHER Sodium Chloride 1,000 mls @ 75 mls/hr 01/28/18 14:30 01/29/18 01:00 Normal Saline - IV 75 mls/hr ASDIR CHRISTOPHER Administration Ceftriaxone Sodium 2 gm/ 100 mls @ 200 mls/hr 01/29/18 10:00 01/29/18 09:51 Dextrose IVPB 200 mls/hr DAILY CHRSITOPHER Administration Protocol Levothyroxine Sodium 100 mcg 01/29/18 10:00 01/29/18 09:50 Synthroid - PO 100 mcg DAILY CHRISTOPHER Administration Losartan Potassium 50 mg 01/28/18 14:30 01/29/18 09:51 Cozaar - PO Not Given DAILY CHRISTOPHER Metoprolol Succinate 100 mg 01/29/18 10:00 01/29/18 09:51 Toprol Xl - PO 100 mg DAILY CHRISTOPHER Administration Morphine Sulfate 4 mg 01/28/18 17:49 01/29/18 12:59 Morphine Sulfate IVPUSH 4 mg Q3H PRN Administration PAIN LEVEL 6-10 Oxycodone HCl 5 mg 01/29/18 11:59 Roxicodone - PO 01/30/18 11:58 Q4H PRN PAIN LEVEL 1-5 Home Medications Medication Instructions Recorded Amlodipine Besylate [Norvasc] 10 mg PO DAILY 07/17/11 Aspirin 81 mg PO DAILY 10/01/12 Simvastatin [Zocor -] 10 mg PO HS 10/01/12 Ergocalciferol (Vitamin D2) 50,000 unit PO WEEKLY 01/28/18 [Vitamin D2] Levothyroxine [Synthroid -] 100 mcg PO DAILY 01/28/18 Losartan Potassium 50 mg PO DAILY 01/28/18 Metoprolol Succinate [Toprol Xl] 100 mg PO DAILY 01/28/18 CT abdomen and pelvis: reported : obstruction L ureteral calculus and hydronephrosis. ASSESSMENT AND PLAN: Patient is a 67yo Female with PMHx HTN, HLD, hypothyroidism presented with left flank pain 02/21 and was found to have left partial obstruction ureteral calculus with hydronephrosis. # Left Ureteral stone with partial obstruction with hydronephrosis: On Iv Ceftriaxone, urology consulted (Dr. Gilbert), pod#0 Left ureteral calculus, Left hydronephrosis, UTI, as per Ofelia Cysto Left JJ stent insertion NS 75, will continue Morphine 2mg iv q4 hr. # HTN: continue home meds: Toprol, Losartan, Norvasc. # HLD: continue home Zocor # Hypothyroidism: continue home synthroid 100 po mcg DVT PPx: SCDs Dc home in am if stable
[2018-01-29] MEDS: ATORVASTATIN CA 10 MG TABLET (FP) PO SCH (21:18)
--- NOTE | 2018-01-30 00:36 | OP ---
DATE OF OPERATION: 01/29/2018 PREOPERATIVE DIAGNOSIS: Left ureteral calculus, left hydronephrosis, urinary tract infection. POSTOPERATIVE DIAGNOSIS: Left ureteral calculus, left hydronephrosis, urinary tract infection. PROCEDURE: Cystoscopy, left double J stent insertion. SURGEON: Jagdeep Terrazas M.D. FOREST TECHNOLOGY PROFESSOR: None. ANESTHESIA: General via laryngeal mask. ANESTHESIOLOGIST: Keyanna Anderson MD SPECIMENS: None. CULTURES: None. DRAINS: 6 Cypriot 24 cm left double J stent. ESTIMATED BLOOD LOSS: None. COMPLICATIONS: None. DESCRIPTION OF PROCEDURE: Patient was brought in the operating room, placed on the operating room table in the supine position. After administration of general anesthesia via laryngeal mask, intravenous antibiotics were administered, and the vagina was prepped and draped in usual sterile manner. A 22 Cypriot cystoscope was inserted into the bladder, the obturator replaced, the obturator was removed. Urine was evacuated. Cystoscopy was performed. A 30-degree telescope was used. There were no foreign bodies, tumors. There were some small what appeared to be stones, like sand, in the bladder which were evacuated. Both ureteral orifices were in the usual location with diminished efflux from the left ureteral orifice. Left ureteral orifice was now cannulated with a 0.038 guidewire, which was advanced to the level of the left renal pelvis under fluoroscopic and direct visual guidance . An open-end ureteral catheter was inserted. The guidewire was removed. Retrograde pyelogram was done, demonstrated mild left hydronephrosis and appeared to be a radiolucent left ureteral 6-mm proximal ureteral calculus. The guidewire was replaced, the open-end ureteral catheter was removed, and a 6-Cypriot, 24-cm, left double J stent was inserted over the guidewire under direct visual and fluoroscopic guidance leaving 1 coil in the renal pelvis and 1 coil in the bladder. Bladder was emptied, cystoscope removed. She tolerated the procedure well. Transferred to recovery room in stable condition. PLAN: Continue IV antibiotics, await urine culture, follow up in the office after discharge to schedule left ureteroscopic laser lithotripsy versus ESWL. JAGDEEP TERRAZAS M.D. [id number]
[2018-01-30] MEDS: SODIUM CHLORIDE 1,000 ML IV SCH (06:13)
[2018-01-30] MEDS: HEPARIN NA (PORCINE) 5,000 UNITS/ML 1ML VIAL SQ SCH (06:14)
[2018-01-30 06:35] LABS: HEMATOCRIT 33.6 % (32.4-45.2); HEMOGLOBIN 11.1 GM/dL (10.7-15.3); MCH 27.8 pg (25.7-33.7); MCHC 33.1 g/dl (32.0-36.0); MEAN PLT VOLUME 7.5 fl (7.5-11.1); PLATELET COUNT 242 K/MM3 (134-434); RDW 14.7 % (11.6-15.6); WHITE BLOOD COUNT 8.6 K/mm3 (4.0-10.0)
[2018-01-30 07:12] LABS: ANION GAP 7 MMOL/L (8-16); BLOOD UREA NITROGEN 11 mg/dL (7-18); CALCIUM 8.7 mg/dL (8.5-10.1); CHLORIDE 105 mmol/L (98-107); CO2 29 mmol/L (21-32); GLUCOSE,RANDOM 113 mg/dL (74-106); POTASSIUM 3.5 mmol/L (3.5-5.1); SODIUM 141 mmol/L (136-145)
[2018-01-30 07:13] LABS: CREATININE 0.6 mg/dL (0.55-1.3); PHOSPHOROUS 2.4 mg/dL (2.5-4.9)
--- NOTE | 2018-01-30 08:27 | PN ---
Teaching Attending Note Name of Resident: Justin Davenport ATTENDING PHYSICIAN STATEMENT I saw and evaluated the patient. I reviewed the resident's note and discussed the case with the resident. I agree with the resident's findings and plan as documented. SUBJECTIVE: Patient is feeling better with no acute distress. wants to go home, OBJECTIVE: Vital Signs Temperature 98.5 F 01/30/18 09:00 Pulse Rate 92 H 01/30/18 09:00 Respiratory Rate 20 01/30/18 09:00 Blood Pressure 156/86 01/30/18 09:00 O2 Sat by Pulse Oximetry (%) 97 01/30/18 09:00 GE: NAD, comfortable. HEAD: NC/AT, EYES: PERRLA, EOMI EARS, NOSE, THROAT: Ears normal, nares patent, oropharynx clear without exudates. Moist mucous membranes. NECK: Normal range of motion, supple, no JVD, or masses. LUNGS: Breath sounds equal, clear to auscultation bilaterally. No wheezes, and no crackles. No accessory muscle use. HEART: Regular rate and rhythm, normal S1 and S2 without murmur, rub or gallop. ABDOMEN: Soft, nontender, large abdomen, positive for ventral hernia , normoactive bowel sounds, no guarding, no rebound, no masses. MUSCULOSKELETAL: Normal range of motion at all joints. No CVA tenderness today EXTREMITIES: 2+ pulses, warm, well-perfused. No cyanosis. No clubbing. No peripheral edema. NEUROLOGICAL: Cranial nerves II-XII intact. Normal speech. Normal gait. PSYCHIATRIC: Cooperative. Good eye contact. Appropriate mood and affect. SKIN: Warm, dry, normal turgor, no rashes or lesions noted, normal capillary refill. CBCD WBC 8.6 K/mm3 (4.0-10.0) 01/30/18 06:00 RBC 4.00 M/mm3 (3.60-5.2) 01/30/18 06:00 Hgb 11.1 GM/dL (10.7-15.3) 01/30/18 06:00 Hct 33.6 % (32.4-45.2) 01/30/18 06:00 MCV 84.0 fl (80-96) 01/30/18 06:00 MCHC 33.1 g/dl (32.0-36.0) 01/30/18 06:00 RDW 14.7 % (11.6-15.6) 01/30/18 06:00 Plt Count 242 K/MM3 (134-434) 01/30/18 06:00 MPV 7.5 fl (7.5-11.1) 01/30/18 06:00 CMP Sodium 141 mmol/L (136-145) 01/30/18 06:00 Potassium 3.5 mmol/L (3.5-5.1) 01/30/18 06:00 Chloride 105 mmol/L (98-107) 01/30/18 06:00 Carbon Dioxide 29 mmol/L (21-32) 01/30/18 06:00 Anion Gap 7 MMOL/L (8-16) L 01/30/18 06:00 BUN 11 mg/dL (7-18) 01/30/18 06:00 Creatinine 0.6 mg/dL (0.55-1.3) 01/30/18 06:00 Creat Clearance w eGFR > 60 (>60) 01/30/18 06:00 Random Glucose 113 mg/dL (74-106) H 01/30/18 06:00 Calcium 8.7 mg/dL (8.5-10.1) 01/30/18 06:00 Total Bilirubin 0.4 mg/dL (0.2-1.0) 01/28/18 12:40 AST 14 U/L (15-37) L 01/28/18 12:40 ALT 27 U/L (13-61) 01/28/18 12:40 Alkaline Phosphatase 100 U/L (45-117) 01/28/18 12:40 Total Protein 7.9 g/dl (6.4-8.2) 01/28/18 12:40 Albumin 4.2 g/dl (3.4-5.0) 01/28/18 12:40 Current Medications Generic Name Dose Route Start Last Admin Trade Name Freq PRN Reason Stop Dose Admin Amlodipine Besylate 10 mg 01/28/18 14:30 01/29/18 09:50 Norvasc - PO 10 mg DAILY CHRISTOPHER Administration Aspirin 81 mg 01/29/18 10:00 01/29/18 11:46 Asa - PO Not Given DAILY CHRISTOPHER Atorvastatin Calcium 10 mg 01/28/18 22:00 01/29/18 21:18 Lipitor - PO 10 mg HS CHRISTOPHER Administration Heparin Sodium (Porcine) 5,000 unit 01/29/18 14:30 01/30/18 06:14 Heparin - SQ 5,000 unit TID CHRISTOPHER Administration Sodium Chloride 1,000 mls @ 75 mls/hr 01/28/18 14:30 01/30/18 06:13 Normal Saline - IV 75 mls/hr ASDIR CHRISTOPHER Administration Ceftriaxone Sodium 2 gm/ 100 mls @ 200 mls/hr 01/29/18 10:00 01/29/18 09:51 Dextrose IVPB 200 mls/hr DAILY CHRISTOPHER Administration Protocol Levothyroxine Sodium 100 mcg 01/29/18 10:00 01/29/18 09:50 Synthroid - PO 100 mcg DAILY CHRISTOPHER Administration Losartan Potassium 50 mg 01/28/18 14:30 01/29/18 09:51 Cozaar - PO Not Given DAILY CHRISTOPHER Metoprolol Succinate 100 mg 01/29/18 10:00 01/29/18 09:51 Toprol Xl - PO 100 mg DAILY CHRISTOPHER Administration Morphine Sulfate 4 mg 01/28/18 17:49 01/29/18 12:59 Morphine Sulfate IVPUSH 4 mg Q3H PRN Administration PAIN LEVEL 6-10 Oxycodone HCl 5 mg 01/29/18 11:59 Roxicodone - PO 01/30/18 11:58 Q4H PRN PAIN LEVEL 1-5 Home Medications Medication Instructions Recorded Amlodipine Besylate [Norvasc] 10 mg PO DAILY 07/17/11 Aspirin 81 mg PO DAILY 10/01/12 Simvastatin [Zocor -] 10 mg PO HS 10/01/12 Ergocalciferol (Vitamin D2) 50,000 unit PO WEEKLY 01/28/18 [Vitamin D2] Levothyroxine [Synthroid -] 100 mcg PO DAILY 01/28/18 Losartan Potassium 50 mg PO DAILY 01/28/18 Metoprolol Succinate [Toprol Xl] 100 mg PO DAILY 01/28/18 CT abdomen and pelvis: reported : obstruction L ureteral calculus and hydronephrosis. ASSESSMENT AND PLAN: Patient is a 67yo Female with PMHx HTN, HLD, hypothyroidism presented with left flank pain 10 and was found to have left partial obstruction ureteral calculus with hydronephrosis. # pod#1 s/p L ureteral calculus, L hydronephrosis, UTI, as per Ofelia Cysto L JJ stent insertion on 01/30/2018 , patient denies any pain, will follow with urologists within a week. Was suggested Tylenol if needed. Patient will follow with for stent removal. # Left Ureteral stone with partial obstruction with hydronephrosis: s/p Stent placement , will continue 5 more days of oral antibiotic Ceftin 500mg po bid x 7 more dasy. #HTN: continue home meds; Toprol, Losartan, Norvasc. #HLD: continue home Zocor #hypothyroidism: continue home synthroid 100 po mcg #DVT PPx: SCDs Dc home today
[2018-01-30] MEDS ORDERED: DEXTROSE 5%-WATER 100 ML IVPB ONE (09:19)
[2018-01-30] MEDS: LOSARTAN POTASSIUM 50 MG TABLET (FP) PO SCH (09:29)
[2018-01-30] MEDS: ASPIRIN 81 MG CHEWABLE TABLETS PO SCH (09:29)
[2018-01-30] MEDS: CEFTRIAXONE 2 GM in DEXTROSE 5%-WATER 100 ML IVPB SCH (09:30)
[2018-01-30] MEDS: amLODIPine BESYLATE 5 MG TABLET (FP) PO SCH (09:30)
[2018-01-30] MEDS: LEVOTHYROXINE NA 100 MCG TABLET (FP) PO SCH (09:32)
[2018-01-30 11:05] VITALS: BP 156/86; PULSE 92; TEMP 98.5
--- NOTE | 2018-01-30 13:04 | DS ---
Physical Exam: SUBJECTIVE: Patient seen and examined at bedside. Is urinating, no hematuria, mild suprapubic pain well-controlled without narcotics, otherwise no complaints. OBJECTIVE: Vital Signs Period Temp Pulse Resp BP Sys/Antunez Pulse Ox Last 24 Hr 98.0 F-99.4 F 76-102 12-20 100-156/56-86 96-98 PHYSICAL EXAM GENERAL: A&O x 3, NAD HEAD: NC/AT EYES: PERRLA, EOMI EARS, NOSE, THROAT: Ears normal, nares patent, oropharynx clear without exudates. Moist mucous membranes. NECK: Normal range of motion, supple without lymphadenopathy, JVD, or masses. LUNGS: Breath sounds equal, clear to auscultation bilaterally. No wheezes, and no crackles. No accessory muscle use. HEART: Regular rate and rhythm, normal S1 and S2 without murmur, rub or gallop. ABDOMEN: Soft, mild suprapubic tenderness, non-distended, large reducible umbilical hernia EXTREMITIES: 2+ pulses, warm, well-perfused. No calf tenderness. No peripheral edema. NEUROLOGICAL: continuous drier helper, motor, sensory systems intact w/o deficits, gait not observed. PSYCHIATRIC: Cooperative. Good eye contact. Appropriate mood and affect. SKIN: Warm, dry, normal turgor, no rashes or lesions noted, normal capillary refill. LABS Laboratory Results - last 24 hr 01/30/18 01/30/18 06:00 06:00 WBC 8.6 RBC 4.00 Hgb 11.1 Hct 33.6 MCV 84.0 MCH 27.8 MCHC 33.1 RDW 14.7 Plt Count 242 MPV 7.5 Sodium 141 Potassium 3.5 Chloride 105 Carbon Dioxide 29 Anion Gap 7 L BUN 11 Creatinine 0.6 Creat Clearance w eGFR > 60 Random Glucose 113 H Calcium 8.7 Phosphorus 2.4 L Magnesium 2.0 HOSPITAL COURSE: Date of Admission:01/28/18 Patient is a 67 y/o F w/ PMHx HTN, HLD, hypothyroidism who p/w 10/[address] a/p showed L ureteral stone and hydronephrosis, admitted for obstructive ureteral stone and possible UTI. Afebrile without leukocytosis on presentation. UA showed RBC and scant WBC, treated empirically with ceftriaxone and morphine for pain control. Urology consulted. Underwent L cystocopy with stent placement without complication. Pain resolved. Discharged with outpt f/u with primary care and urology for ESWL and stent change/removal and 5 day completion of ABx on Ceftin. Date of Discharge: 01/30/18 Minutes to complete discharge: 40 Discharge Summary Reason For Visit: CALCULUS OF KIDNEY Condition: Improved - Instructions Diet, Activity, Other Instructions: You were hospitalized for a kidney stone causing pain, obstruction, and infection of the urinary tract. You were treated with IV fluids and antibiotics. You underwent urologic surgery and had a stent placed to relieve the obstruction. Referrals Please see your primary care doctor within a week of discharge. Please call the office of Dr. Gilbert ([phone]) to set up an appointment for removal of the stent within 1 week of discharge. A referral has been made on your behalf. Medical recommendations Please resume your home medications and keep well-hydrated. Additionally, you are being prescribed a course of oral antibiotics to take twice a day for 5 days following discharge. Please take them exactly as prescribed to completion. There may be some lower abdominal or urinary discomfort, or small amount of blood in your urine briefly following surgery. If you feel any new or worsening flank pain, back pain, lower abdominal pain, fever, chills, nausea, vomiting, worsening pain or worsening bleeding when you urinate, or any other new symptom , please return to the Emergency Department immediately. Referrals: Jagdeep Gilbert MD [Staff Physician] - 1 Week Constance Chapman [Primary Care Provider] - 1 Week Disposition: HOME - Home Medications Comprehensive Discharge Medication List: Ambulatory Orders Amlodipine Besylate [Norvasc] 10 mg PO DAILY 07/17/11 Aspirin 81 mg PO DAILY 10/01/12 Simvastatin [Zocor -] 10 mg PO HS 10/01/12 Ergocalciferol (Vitamin D2) [Vitamin D2] 50,000 unit PO WEEKLY 01/28/18 Levothyroxine [Synthroid -] 100 mcg PO DAILY 01/28/18 Losartan Potassium 50 mg PO DAILY 01/28/18 Metoprolol Succinate [Toprol Xl] 100 mg PO DAILY 01/28/18 Cefuroxime Axetil [Ceftin -] 500 mg PO BID #10 tablet 01/30/18 This patient is new to me today: No Emergency Visit: No Critical Care patient: No - Discharge Referral Referred to [facility] No
== END 2018-01-30 11:54 | disposition home or self-care (01) | DRG 690 ==
LOC: JER 11:58 → JERBED 13:43 → J6S 15:49
PROVIDERS: ADMIT Internal Medicine; ATTEND Internal Medicine
PROC: 0T778DZ Dilation of Left Ureter with Intraluminal Device, Via Natural or Artificial Opening Endoscopic (ICD-10-PCS; principal; 2018-01-29 11:00)
DX: N13.6 Pyonephrosis (principal); I10 Essential (primary) hypertension; E78.5 Hyperlipidemia, unspecified; E03.9 Hypothyroidism, unspecified; K80.20 Calculus of gallbladder without cholecystitis without obstruction; D25.9 Leiomyoma of uterus, unspecified
CPT/HCPCS: 36415; 71045-TC-FY; 74176; 76000-TC-FY; 80048; 80053; 81003; 81015; 83735; 84100; 85025; 85027; 85610; 85730; 86850; 86900; 86901; 87086; 93005; 93010; 94760; 97116-GP; 97161-GP; 99284-25; J0131; J1644; J7030

== ENCOUNTER 2018-02-09 08:05 | Day surgery (SDC) | payer OTHER ==
[2018-02-08 15:17] VITALS: BMI 32.4
--- NOTE | 2018-02-09 08:35 | HP ---
History & Physical Update - History History: No Change - Physical Physical: No Change - Assessment Assessment: No Change - Plan Plan: No Change
--- NOTE | 2018-02-09 08:37 | OP ---
Operative Note - Note: Operative Date: 02/09/18 Pre-Operative Diagnosis: L ureteral calculus Operation: L ureteroscopic laser lithotripsy, stone basketing and JJ stent change Findings: L ureteral calculus Post-Operative Diagnosis: Same as Pre-op Surgeon: Jagdeep Gilbert Anesthesiologist/PATTERN MARKING SUPERVISOR: Jasmeet Lopez Anesthesia: General Specimens Removed: L ureteral calculus, L JJ stent Estimated Blood Loss (mls): 0 Drains & Tubes with Location: 6 fr 24 cm L JJ stent Operative Report Dictated: Yes
[2018-02-09] MEDS ORDERED: MIDAZOLAM HCL 2 MG/2 ML SINGLE DOSE VIAL ONE (10:20)
[2018-02-09] MEDS ORDERED: PROPOFOL 20 ML ONE (10:20)
[2018-02-09] MEDS ORDERED: FUROSEMIDE 40 MG/4 ML INJECTABLE VIAL ONE (10:42)
[2018-02-09] MEDS ORDERED: DEXAMETHASONE SOD PHOSPHATE 4 MG/1 ML VIAL ONE (10:42)
[2018-02-09] MEDS ORDERED: KETOROLAC TROMETHAMINE 30 MG/1 ML VIAL ONE (10:56)
[2018-02-09] MEDS ORDERED: LACTATED RINGERS SOLUTION 1,000 ML IV SCH (11:15)
[2018-02-09] MEDS ORDERED: ONDANSETRON 4 MG/2 ML VIAL IVPUSH PRN (11:15)
[2018-02-09] MEDS ORDERED: PROMETHAZINE HCL 25 MG/1 ML VIAL IVPB PRN (11:15)
--- NOTE | 2018-02-09 11:19 | EKG ---
Test Reason : Blood Pressure : / mmHG Vent. Rate : 096 BPM Atrial Rate : 096 BPM P-R Int : 142 ms QRS Dur : 076 ms QT Int : 362 ms P-R-T Axes : 054 047 060 degrees QTc Int : 457 ms NORMAL SINUS RHYTHM NORMAL ECG WHEN COMPARED WITH ECG OF 28-JAN-2018 14:44, NO SIGNIFICANT CHANGE WAS FOUND Confirmed by CRISTOPHER VILLA MD ([id number]) on 02/09/2018 11:18:49 AM Referred By: aJgdeep Gilbert Confirmed By:CRISTOPHER VILLA MD
[2018-02-09 13:37] VITALS: BP 120/62; PULSE 70; TEMP 97.7
--- NOTE | 2018-02-10 10:40 | OP ---
DATE OF OPERATION: 02/09/2018 PREOPERATIVE DIAGNOSIS: Left ureteral calculus. POSTOPERATIVE DIAGNOSIS: Left ureteral calculus. PRODEDURE: Cystoscopy, left ureteroscopic laser lithotripsy, stone basketing, left double-J stent exchange. SURGEON: Jagdeep Terrazas MD PACKAGING CLERK: None. ANESTHESIA: General via laryngeal mask. ANESTHESIOLOGIST: Jasmeet Lopez MD SPECIMENS: Left ureteral calculi. CULTURES: None. DRAINS: A 6-Azerbaijani 24-cm left double-J stent. ESTIMATED BLOOD LOSS: Negligible. COMPLICATIONS: None. PROCEDURE WAS FOLLOWS: Patient was brought into the operating room, placed on the operating room table in the supine position. After administration of general anesthesia via laryngeal mask, intravenous antibiotics were administered, sequential compression devices were placed. The patient was placed in the dorsal lithotomy position. The vagina and perineum were prepped and draped in the usual sterile manner. A 22-Azerbaijani cystoscope was inserted into the bladder. The obturator was removed, then urine was evacuated. The 30-degree telescope was inserted, and cystoscopy was performed. This demonstrated no tumors or stones with the left double-J stent in good position. Left double-J stent was grasped at its tip, brought to the urethral meatus, cannulated with a 0.038 guidewire, which was advanced to the level of the left renal pelvis under fluoroscopic guidance. The double-J stent was removed, sent to Pathology as specimen. The semi-rigid ureteroscope was now inserted alongside the guidewire to the level of the mid ureter where approximately 6-mm ureteral calculus was visualized. The 325 micron laser fiber was inserted. Laser lithotripsy was done until the stone was fragmented into minute pieces. Some of these were irrigated out and others were basketed and removed and sent to Pathology as specimen. The ureteroscope was once again reinserted at the level of the proximal ureter. No additional stones were seen. A retrograde pyelogram was done, and there was no evidence of extravasation of contrast, no hydronephrosis, no additional filling defects or radiopaque calculi. The ureteroscope was removed and a 6-Azerbaijani 24-cm double-J stent was inserted over the guidewire under fluoroscopic guidance leaving one coil in the renal pelvis and one coil in the bladder. The cystoscope was inserted and confirmed the position of the stent in the bladder. The stent was now secured to the thigh with its suture and a Tegaderm. She tolerated the procedure well, was awoken from anesthesia in the operating room, and transferred to the recovery room in stable condition. PLAN: Follow up in the office on Monday for stent removal. JAGDEEP TERRAZAS M.D. [id number]
--- NOTE | 2018-02-12 16:40 | PATH ---
Surgical Pathology Report Patient Name: DHIRAJ GORE Med. Rec. #: [id number] /Age/Gender: 1950 (Age: 67) / F Account: [id number] Location: [facility] Taken: 02/09/2018 Received: 02/09/2018 Reported: 02/12/2018 Physicians: Jagdeep Gilbert M.D. Specimen(s) Received A: LEFT URETERAL STENT B: LEFT URETERAL CALCULI Clinical History Left ureteral stone Final Diagnosis A. URETERAL STENT, LEFT, REMOVAL: URETERAL STENT. MACROSCOPIC DIAGNOSIS. B. URETERAL STONES, LEFT, LASER LITHOTRIPSY: URETEROLITHIASIS MACROSCOPIC DIAGNOSIS. Electronically Signed Toshia Hilton M.D. Gross Description A. Received fresh labeled "left ureteral stent" is a green stent consistent with ureteral stent which measures 35 cm in length with a lumen of 0.1 cm. No soft tissue identified, for gross only. B. Received fresh labeled "left ureteral stones" are 2 irregular black-brown calculi measuring 0.1 cm in greatest dimension. The specimen is sent for chemical analysis. MLSZ/02/09/2018 solo/02/09/2018
[2018-02-19 14:10] LABS: CA OXALATE MONOHYDR. 75 % (.); URIC ACID 15 % (.); WEIGHT 4.8 mg (.)
== END 2018-02-09 13:30 | disposition home or self-care (01) ==
LOC: JASU-SURG 08:05
PROVIDERS: ATTEND Urology
PROC: 0TF78ZZ Fragmentation in Left Ureter, Via Natural or Artificial Opening Endoscopic (ICD-10-PCS; principal; 2018-02-09 09:30)
PROC: 0T778DZ Dilation of Left Ureter with Intraluminal Device, Via Natural or Artificial Opening Endoscopic (ICD-10-PCS; 2018-02-09 09:30)
DX: N20.1 Calculus of ureter (principal)
CPT/HCPCS: 36415; 76000-TC-FY; 82360; 88300-TC; 93005; 93010; 94760

== ENCOUNTER 2018-02-11 10:59 | Emergency (ER) | payer OTHER ==
[2018-02-11 11:08] VITALS: BMI 32.5
--- NOTE | 2018-02-11 12:11 | PDOC ---
*Physical Exam - Vital Signs Last Vital Signs Temp Pulse Resp BP Pulse Ox 98 F 84 18 135/72 99 02/11/18 11:05 02/11/18 11:05 02/11/18 11:05 02/11/18 11:05 02/11/18 11:05 Medical Decision Making - Medical Decision Making 02/11/18 12:10 Vital Signs Temp Pulse Resp BP Pulse Ox 98 F 84 18 135/72 99 02/11/18 11:05 02/11/18 11:05 02/11/18 11:05 02/11/18 11:05 02/11/18 11:05 I agree with LAURA Parekh's plan. Pt with recent procedure now with a "string" coming from urethra. Denies any other complaints. LAURA Parekh will consult with pt' s urologist for further disposition. *DC/Admit/Observation/Transfer - Referrals Referrals: Constance Chapman [Primary Care Provider] - - Patient Instructions - Post Discharge Activity
--- NOTE | 2018-02-11 12:24 | PDOC ---
History of Present Illness - General Chief Complaint: Urinary Problem Stated Complaint: DI FOR URETERA STENT PLACEMENT/PAIN Time Seen by Provider: 02/11/18 11:26 History Source: Patient - History of Present Illness Timing/Duration: reports: other Past History - Past Medical History Allergies/Adverse Reactions: Allergies Allergy/AdvReac Type Severity Reaction Status Date / Time amoxicillin [Amoxicillin] Allergy Mild Itching Verified 02/11/18 11:08 Home Medications: Ambulatory Orders Amlodipine Besylate [Norvasc] 10 mg PO DAILY 07/17/11 Aspirin 81 mg PO DAILY 10/01/12 Simvastatin [Zocor -] 10 mg PO HS 10/01/12 Ergocalciferol (Vitamin D2) [Vitamin D2] 50,000 unit PO WEEKLY 01/28/18 Levothyroxine [Synthroid -] 100 mcg PO DAILY 01/28/18 Losartan Potassium 50 mg PO DAILY 01/28/18 Metoprolol Succinate [Toprol Xl] 100 mg PO DAILY 01/28/18 Meclizine HCl 25 mg PO PRN PRN 02/09/18 Oxycodone HCl/Acetaminophen [Percocet 5-325 mg Tablet] 1 - 2 tab PO Q4H PRN #56 tablet MDD 8 02/09/18 Sulfamethoxazole/Trimethoprim [Bactrim Ds -] 1 tab PO BID #14 tablet 02/09/18 Asthma: No Cardiac Disorders: No CVA: No COPD: No Dementia: No Diabetes: No HTN: Yes Hypercholesterolemia: Yes Liver Disease: No Seizures: No Thyroid Disease: Yes - Surgical History Appendectomy: Yes Cholecystectomy: Yes - Suicide/Smoking/Psychosocial Hx Smoking Status: No Smoking History: Never smoked Have you smoked in the past 12 months: No Number of Cigarettes Smoked Daily: 0 Hx Alcohol Use: No Drug/Substance Use Hx: No Substance Use Type: None Hx Substance Use Treatment: No Review of Systems - Review of Systems Constitutional: No: Fever ABD/GI: No: Nausea, Vomiting, Abdominal cramping : No: Dysuria, Flank Pain, Hematuria *Physical Exam - Vital Signs Last Vital Signs Temp Pulse Resp BP Pulse Ox 98 F 84 18 135/72 99 02/11/18 11:05 02/11/18 11:05 02/11/18 11:05 02/11/18 11:05 02/11/18 11:05 - Physical Exam General Appearance: Yes: Appropriately Dressed. No: Apparent Distress HEENT: positive: Normal Voice Neck: positive: Supple Respiratory/Chest: negative: Respiratory Distress Female Pelvic Exam: positive: other (ureteral string protruding out of vaginal area and extends to mid thigh, stent not visualized) Gastrointestinal/Abdominal: positive: Soft. negative: Tender Musculoskeletal: negative: CVA Tenderness Integumentary: positive: Dry, Warm Neurologic: positive: Fully Oriented, Alert, Normal Mood/Affect Medical Decision Making - Medical Decision Making 02/11/18 12:19 67-year-old female, history of hypertension, hyperlipidemia, hypothyroidism, renal stone, s/p L lithotripsy with stent placed 02/09, currently on bactrim and percocet (of note, urine culture read as contaminated, no sensitivities), here with complaint that string attached to her stent is now protruding out her vagina x several days. Feels a "pinching" pain to area when she walks. Otherwise no pain, dysuria, flank pain, nausea, vomiting, fever or chills. Has appointment to see her urologist for follow-up in 2 days. See exam Displacement of ureteral stent string s/p recent lithotripsy/stent placement On abx (recent cx read as contaminated) - c/s to discuss dispo 02/11/18 14:02 Unable to get in touch with Dr Gilbert,patient's urologist. Case discussed with Dr. Law, who is transportation design engineer. States as long as the stent itself is not protruding, then patient can be discharged to follow-up with her urologist. Plan discussed with patient who feels safe going home, to follow up with her urologist on Monday02/11/18 14:04 *DC/Admit/Observation/Transfer Diagnosis at time of Disposition: Complication of urinary stent Qualifiers: Encounter type: initial encounter Qualified Code(s): T83.9XXA - Unspecified complication of genitourinary prosthetic device, implant and graft, initial encounter - Discharge Dispostion Disposition: HOME Condition at time of disposition: Good - Referrals Referrals: Constance Chapman [Primary Care Provider] - - Patient Instructions Additional Instructions: We spoke to urology, who states that you can wait until Monday to be evaluated by your urologist. States there was no intervention needed in ER as long as the stent, itself is in place. If yourr conditions worsen and you see the actual stent protruding, return to ER immediately - Post Discharge Activity
[2018-02-11 12:50] LABS: URINE APPEARANCE CLEAR; URINE BILIRUBIN NEGATIVE (<2.0 mg/dL); URINE COLOR LTYELLOW; URINE GLUCOSE (UA) NEGATIVE (NEGATIVE); URINE KETONE NEGATIVE (NEGATIVE); URINE NITRITE NEGATIVE (NEGATIVE); URINE UROBILINOGEN NEGATIVE mg/dL (0.2-1.0)
[2018-02-11 12:52] LABS: URINE LEUK ESTERASE 1+ (NEGATIVE); URINE PROTEIN 2+ (NEGATIVE)
[2018-02-11 12:57] LABS: URINE HYALINE CAST 1 /lpf; URINE MUCUS RARE
[2018-02-11 14:23] VITALS: BP 118/72; PULSE 68; TEMP 98.2
== END 2018-02-11 14:26 | disposition home or self-care (01) ==
LOC: JER 10:59
DX: T83.9XXA Unspecified complication of genitourinary prosthetic device, implant and graft, initial encounter (principal); I10 Essential (primary) hypertension; E03.9 Hypothyroidism, unspecified; E78.00 Pure hypercholesterolemia, unspecified
CPT/HCPCS: 81003; 81015; 99282-25

== ENCOUNTER 2018-10-03 10:33 | Day surgery (SDC) | payer OTHER | END 2018-10-03 13:20 | disposition home or self-care (01) | LOC: JASU-SURG 10:33 ==